=== PATIENT | female | born 1940 | race Caucasian/White ===

== ENCOUNTER 2024-08-13 10:22 | Emergency (ER) | payer MEDICARE ==
[2024-08-13 10:28] VITALS: RESP 18
--- NOTE | 2024-08-13 10:44 | ED ---
Back Pain HPI - General Chief Complaint: Back Pain/Injury Stated Complaint: Back Pain Time Seen by Provider: 08/13/24 10:42 Source: patient, family, RN notes reviewed Limitations: no limitations - History of Present Illness Initial Comments: 83-year-old female presenting to the ER with a chief complaint of back pain. Patient states she is extremely active throughout her daily life. She states approximately 1 week ago she drove to [place] to visit a library. She is doing many repetitive movements of bending over or looking at computer screens and moving items. She states the next night she started to experience left- sided back pain with radiation to lateral and anterior thigh. Pain stops at knee. Pain has progressively worsened throughout the week. She has been al ternating ice and heat. She also has been taking koym-ivy-jffmlms ibuprofen and redness with minor relief. Patient denies any saddle paresthesias, bowel or bladder incontinence, fevers. - Related Data Home Medications Medication Instructions Recorded Confirmed Aspirin 81 mg PO DAILY 09/30/17 09/30/17 Glucosam/Dmitry-Msm1/C/Danilo/Bosw 1 tab PO DAILY 09/30/17 09/30/17 [Glucosamine-Chondroitin Tablet] Losartan/Hydrochlorothiazide 1 tab PO DAILY 09/30/17 09/30/17 [Losartan-Hctz 100-25 mg Tab] [place]yers-3 Fatty Acids/Fish Oil [Fish 1 cap PO DAILY 09/30/17 09/30/17 Oil 1,000 mg Softgel] Tetrahydrozoline 0.05% Ophth 1 drop BOTH EYES QID PRN 09/30/17 09/30/17 [Visine Eye Drops] Vitamin E (Dl,Tocopheryl Acet) 400 unit PO DAILY 09/30/17 09/30/17 [Vitamin E] Previous Rx's Medication Instructions Recorded Cyclobenzaprine [Flexeril] 5 mg PO TID PRN #15 tablet 08/13/24 Allergies Allergy/AdvReac Type Severity Reaction Status Date / Time Xofxjbt-EZT-WgS Reductase AdvReac Muscle Verified 08/13/24 10:28 Inhibitor cramps [Jezldtm-Aze-Mhj Reductase Inhibitor] Review of Systems ROS Statement: Those systems with pertinent positive or pertinent negative responses have been documented in the HPI. ROS Other: All systems not noted in ROS Statement are negative. Past Medical History Past Medical History: Hyperlipidemia, Hypertension, Osteoarthritis (OA) History of Any Multi-Drug Resistant Organisms: None Reported Additional Past Surgical History / Comment(s): D&C, Skin cancer removal Past Psychological History: No Psychological Hx Reported Smoking Status: Never smoker Past Alcohol Use History: None Reported Past Drug Use History: None Reported General Exam Limitations: no limitations General appearance: alert, in no apparent distress Respiratory exam: Present: normal lung sounds bilaterally. Absent: respiratory distress, wheezes, rales, rhonchi, stridor Cardiovascular Exam: Present: regular rate, normal rhythm, normal heart sounds. Absent: systolic murmur, diastolic murmur, rubs, gallop, clicks Extremities exam: Present: tenderness (Right buttock right pelvic gurdle no overlying skin changes. Negative straight leg raise bilaterally.) Back exam: Present: normal inspection, full ROM Neurological exam: Present: alert, oriented X3, CN II-XII intact Skin exam: Present: warm, dry, intact, normal color. Absent: rash Course Vital Signs 08/13/24 08/13/24 08/13/24 10:24 10:33 11:35 Temperature 98.2 F 97.9 F Pulse Rate 101 H 100 83 Respiratory 18 18 Rate Blood Pressure 123/74 134/76 O2 Sat by Pulse 95 95 96 Oximetry 08/13/24 12:23 Temperature 98.2 F Pulse Rate 83 Respiratory 18 Rate Blood Pressure 148/88 O2 Sat by Pulse 96 Oximetry Medical Decision Making - Medical Decision Making Was pt. sent in by a medical professional or institution (, PA, INSTALL AND REPAIR TECHNICIAN, urgent care, hospital, or [facility]...) When possible be specific @ -No Did you speak to anyone other than the patient for history (EMS, parent, family, police, friend...)? What history was obtained from this source @ -Patient's daughter, at bedside, aiding in HPI and past medical history. Did you review nursing and triage notes (agree or disagree)? Why? @ -I reviewed and agree with nursing and triage notes Were old charts reviewed (outside hosp., previous admission, EMS record, old EKG, old radiological studies, urgent care reports/EKG's, [facility] records)? Report findings @ -No old charts were reviewed Differential Diagnosis (chest pain, altered mental status, abdominal pain women, abdominal pain men, vaginal bleeding, weakness, fever, dyspnea, syncope, headache, dizziness, GI bleed, back pain, seizure, CVA, palpatations, mental health, musculoskeletal)? @ -[Differential Back Pain: Strain, zoster, cauda equina syndrome, epidural abscess, vertebral osteomyelitis, discitis, fracture, subluxation, disc herniation, DJD, spinal stenosis, dissection, AAA, pancreatitis, peptic ulcer disease, pyelonephritis, kidney stone, this is not meant to be an all-inclusive list. EKG interpreted by me (3pts min.). @ -None done X-rays interpreted by me (1pt min.). @ -[Lumbar spine x-ray showing no acute fractures. Grade 1 anterior listhesis of L4 on L5. CT interpreted by me (1pt min.). @ -[None done U/S interpreted by me (1pt. min.). @ -None done What testing was considered but not performed or refused? (CT, X-rays, U/S, labs)? Why? @ -None What meds were considered but not given or refused? Why? @ -None Did you discuss the management of the patient with other professionals (professionals i.e. , PA, INSTALL AND REPAIR TECHNICIAN, lab, RT, psych nurse, social services aide, electrician station assistant, teacher, medical information officer, case assembler)? Give summary @ -No Was smoking cessation discussed for >3mins.? @ -No Was critical care preformed (if so, how long)? @ -No Were there social determinants of health that impacted care today? How? (Homelessness, low income, unemployed, alcoholism, drug addiction, transportation, low edu. Level, literacy, decrease access to med. care, [facility], rehab)? @ -No Was there de-escalation of care discussed even if they declined (Discuss DNR or withdrawal of care, Hospice)? DNR status @ -No What co-morbidities impacted this encounter? (DM, HTN, Smoking, COPD, CAD, Cancer, CVA, ARF, Chemo, Hep., AIDS, mental health diagnosis, sleep apnea, morbid obesity)? @ -None Was patient admitted / discharged? Hospital course, mention meds given and route, prescriptions, significant lab abnormalities, going to OR and other pertinent info. @ -Discharge. 83-year-old female presented to the ER with a chief complaint of lumbar back pain with radiation to right leg. History and physical exam completed. Vitals within normal limits. Patient in no signs of acute distress. No red flag back pain symptoms indicative cauda equina syndrome. Tenderness to palpation of right pelvic girdle and right mid buttock. Bilateral lower extremities neuro vastly intact and with equal strength. No overlying skin changes. Lumbar spine x-rays negative for acute process. Patient received IM Decadron and ibuprofen for pain control in the ER. Symptoms believed to be MSK/sciatic. Upon reevaluation, patient reporting great improvement of symptoms. Results discussed with patient, all questions answered. No signs of acute distress. Strict return parameters discussed. Patient discharged in stable condition with follow-up to PCP. Patient verbally expressed understanding and agreement with care plan. Case discussed with ED attending, Dr. Padilla. Undiagnosed new problem with uncertain prognosis? @ -No Drug Therapy requiring intensive monitoring for toxicity (Heparin, Nitro, Insulin, Cardizem)? @ -No Were any procedures done? @ -No Diagnosis/symptom? @ -Back pain Acute, or Chronic, or Acute on Chronic? @ -Acute Uncomplicated (without systemic symptoms) or Complicated (systemic symptoms)? @ -Uncomplicated Side effects of treatment? @ -No Exacerbation, Progression, or Severe Exacerbation? @ -No Poses a threat to life or bodily function? How? (Chest pain, USA, VT, pneumonia, PE, COPD, DKA, ARF, appy, cholecystitis, CVA, Diverticulitis, Homicidal, Suicidal, threat to staff... and all critical care pts) @ -No - Radiology Data Radiology results: report reviewed, image reviewed Disposition Clinical Impression: Back pain Disposition: HOME SELF-CARE Condition: Stable Instructions (If sedation given, give patient instructions): Acute Low Back Pain (ED) Additional Instructions: Continue to take efvu-bsg-vtizowh ibuprofen and Tylenol for pain. Beware Flexeril may make you drowsy. Follow-up with PCP. Return to the ER for any new or worsening concerns. Prescriptions: Cyclobenzaprine [Flexeril] 5 mg PO TID PRN #15 tablet PRN Reason: Muscle Spasm Is patient prescribed a controlled substance at d/c from ED?: No Referrals: Deloris Anderson MD [REFERRING] - 1-2 days Time of Disposition: 12:05
[2024-08-13] MEDS: DEXAMETHASONE SOD PHOSPHATE 4 MG/ML 1 ML VIAL IM STA (10:49)
[2024-08-13] MEDS: IBUPROFEN 600 MG TAB PO STA (10:53)
--- NOTE | 2024-08-13 11:15 | XR ---
EXAMINATION TYPE: XR lumbar spine 2 or 3V DATE OF EXAM: 08/13/2024 11:01 AM CLINICAL INDICATION: Female, 83 years old with history of back pain; [facility] COMPARISON: None TECHNIQUE: XR lumbar spine 2 or 3V - Frontal, lateral and coned in L5-S1 lateral views of the spine. FINDINGS: No evidence of any acute osseous pathology. No evidence of loss of vertebral body height i s seen. There is grade 1 anterolisthesis of L4 and L5 alignment of the lumbar vertebral bodies. Scatt ered disc space narrowing. Multilevel marginal osteophyte formation throughout the visualized spine. There is facet joint arthropathy throughout the spine. Scattered at least mild neural foraminal steno sis. Atherosclerosis of the arterial vasculature. IMPRESSION: 1. No acute fracture. 2. Mild multilevel disc degeneration. 3. Grade 1 anterolisthesis of L4 and L5. [facility], , 08/13/2024 11:13 AM
[2024-08-13 11:35] VITALS: PULSE 83
[2024-08-13 12:25] VITALS: BP 148/88; TEMP 98.2
== END 2024-08-13 12:25 | disposition home or self-care (01) ==
LOC: EC 10:22
CPT/HCPCS: 72100; 96372; 99283